=== PATIENT | male | born 1990 | race Caucasian/White ===

== ENCOUNTER 2016-08-01 17:32 | Observation (INO) | payer OTHER ==
[~2016-08-01] VITALS: Ht 188 cm; Wt 91.8 kg
[2016-08-01] MEDS: SODIUM CHLORIDE 0.9% FLUSH 10 ML FLUSH IV FLUSH SCH (01:00)
[2016-08-01 17:40] VITALS: BP 129/77; PULSE 61; RESP 16; TEMP 99; O2SAT 98
[2016-08-01] MEDS ORDERED: DIATRIZOATE MEGLUM/DIATRIZOATE SOD 9 ML CUP ONE (17:58)
[2016-08-01 18:08] LABS: AUTOMATED NEUTROPHIL # 5.9 TH/MM3 (1.8-7.7); BASOPHIL # 0.1 TH/MM3 (0-0.2); BASOPHIL % 1.4 % (0.0-2.0); EOSINOPHIL # 0.1 TH/MM3 (0-0.4); EOSINOPHIL % 0.8 % (0.0-4.0); HEMATOCRIT 44.8 % (39.0-51.0); HEMO FLAGS DIFF FINAL; LYMPH % 25.4 % (9.0-44.0); LYMPHOCYTE # 2.3 TH/MM3 (1.0-4.8); MEAN CELL VOLUME 84.9 FL (80.0-100.0); MEAN CORPUSCULAR HEMOGLOBIN 28.6 PG (27.0-34.0); MEAN CORPUSCULAR HGB CONC 33.7 % (32.0-36.0); MONO % 6.8 % (0.0-8.0); NEUT % 65.6 % (16.0-70.0); PLATELET COUNT 217 TH/MM3 (150-450); RED BLOOD COUNT 5.28 MIL/MM3 (4.50-5.90); RED CELL DISTRIBUTION WIDTH 11.3 % (11.6-17.2)
[2016-08-01 18:09] LABS: BLOOD, URINE NEG (NEG); GLUCOSE,URINE NEG (NEG); KETONE, URINE NEG (NEG); NITRITE,URINE NEG (NEG); PH, URINE 6.5 (5.0-8.5)
[2016-08-01 18:15] LABS: COMMENT (UR) CULT NOT INDICATED; CULTURE IF INDICATED CULT NOT INDICATED; SQUAMOUS EPITHELIAL CELL URINE 0-5 /hpf (0-5); URINE COLOR YELLOW (YELLW/STRAW)
[2016-08-01 18:16] LABS: CHLORIDE 105 MEQ/L (98-107); POTASSIUM 3.8 MEQ/L (3.5-5.1); SODIUM (NA) 142 MEQ/L (136-145)
--- NOTE | 2016-08-01 18:18 | PD ---
HPI Chief Complaint: Abdominal Pain Time Seen by Provider: 17:47 Travel History International Travel<30 days: No Contact w/Intl Traveler<30days: No Traveled to known affect area: No History of Present Illness HPI Patient is a 26-year-old male who presents to emergency room with complaints of abdominal pain. Patient reports that for the past 2 days, he has had intermittent right lower quadrant abdominal pain, reports no fevers or chills, reports that he did have a normal bowel movement today. Patient did go to an urgent care center today, was told to come to emergency room for CT scan of his abdomen and pelvis to rule out appendicitis. Overall, patient reports that he has not loss of appetite, reports no nausea or vomiting or diarrhea. Patient denies any recent travels or trips PFS Past Medical History Medical History: Denies Significant Hx Diminished Hearing: No Tetanus Vaccination: Unknown Past Surgical History Surgical History: No Previous Surgery Family History Family History: Negative Social History Alcohol Use: No Tobacco Use: No Substance Use: No Allergies-Medications (Allergen,Severity, Reaction): Coded Allergies: No Known Allergies (Unverified , 08/01/16) Reported Meds & Prescriptions Reported Meds & Active Scripts Active No Active Prescriptions or Reported Medications Review of Systems General / Constitutional: No: Fever Eyes: No: Visual changes HENT: No: Headaches Cardiovascular: No: Chest Pain or Discomfort Respiratory: No: Shortness of Breath Gastrointestinal: Positive: Abdominal Pain Genitourinary: No: Dysuria Musculoskeletal: No: Pain Skin: No Rash Neurologic: No: Weakness Psychiatric: No: Depression Endocrine: No: Polydipsia Hematologic/Lymphatic: No: Easy Bruising Physical Exam Narrative GENERAL: mild distress SKIN: Warm and dry. HEAD: Atraumatic. Normocephalic. EYES: Pupils equal and round. No scleral icterus. No injection or drainage. ENT: No nasal bleeding or discharge. Mucous membranes pink and moist. NECK: Trachea midline. No JVD. CARDIOVASCULAR: Regular rate and rhythm. No murmur appreciated. RESPIRATORY: No accessory muscle use. Clear to auscultation. Breath sounds equal bilaterally. GASTROINTESTINAL: Abdomen soft, patient with tenderness to RLQ with NO rebound or guarding MUSCULOSKELETAL: No obvious deformities. No clubbing. No cyanosis. No edema. NEUROLOGICAL: Awake and alert. Normal speech. PSYCHIATRIC: Appropriate mood and affect; insight and judgment normal. Data Data Last Documented VS Vital Signs Date Time Temp Pulse Resp B/P Pulse Ox O2 Delivery O2 Flow Rate FiO2 08/01/16 19:18 62 18 119/72 96 Room Air 08/01/16 17:40 99.0 Orders Complete Blood Count With Diff (08/01/16 17:55) Comprehensive Metabolic Panel (08/01/16 17:55) Lipase (08/01/16 17:55) Prothrombin Time / Inr (Pt) (08/01/16 17:55) Act Partial Throm Time (Ptt) (08/01/16 17:55) Urinalysis - C+S If Indicated (08/01/16 17:55) Ct Abd/Pel W Iv Contrast(Rout) (08/01/16 17:55) Iv Access Insert/Monitor (08/01/16 17:55) NPO (08/01/16 17:55) Oral Contrast - Adult (08/01/16 17:58) Diatrizoate Liq ( Gastroview Liq) (08/01/16 17:58) Gc And Chlamydia Pcr (08/01/16 18:10) Ua Includes Microscopic (08/01/16 18:10) Iohexol 350 Inj (Omnipaque 350 Inj) (08/01/16 19:36) Admit Order (Ed Use Only) (08/01/16 20:00) Labs Laboratory Tests Test 08/01/16 18:00 White Blood Count 9.0 TH/MM3 Red Blood Count 5.28 MIL/MM3 Hemoglobin 15.1 GM/DL Hematocrit 44.8 % Mean Corpuscular Volume 84.9 FL Mean Corpuscular Hemoglobin 28.6 PG Mean Corpuscular Hemoglobin 33.7 % Concent Red Cell Distribution Width 11.3 % Platelet Count 217 TH/MM3 Mean Platelet Volume 8.4 FL Neutrophils (%) (Auto) 65.6 % Lymphocytes (%) (Auto) 25.4 % Monocytes (%) (Auto) 6.8 % Eosinophils (%) (Auto) 0.8 % Basophils (%) (Auto) 1.4 % Neutrophils # (Auto) 5.9 TH/MM3 Lymphocytes # (Auto) 2.3 TH/MM3 Monocytes # (Auto) 0.6 TH/MM3 Eosinophils # (Auto) 0.1 TH/MM3 Basophils # (Auto) 0.1 TH/MM3 CBC Comment DIFF FINAL Differential Comment Prothrombin Time 11.0 SEC Prothromb Time International 1.0 RATIO Ratio Activated Partial 27.3 SEC Thromboplast Time Urine Color YELLOW Urine Turbidity CLEAR Urine pH 6.5 Urine Specific Libby 1.015 Urine Protein NEG mg/dL Urine Glucose (UA) NEG mg/dL Urine Ketones NEG mg/dL Urine Occult Blood NEG Urine Nitrite NEG Urine Bilirubin NEG Urine Leukocyte Esterase NEG Urine Squamous Epithelial 0-5 /hpf Cells Microscopic Urinalysis Comment CULT NOT INDICATED Sodium Level 142 MEQ/L Potassium Level 3.8 MEQ/L Chloride Level 105 MEQ/L Carbon Dioxide Level 30.1 MEQ/L Anion Gap 7 MEQ/L Blood Urea Nitrogen 21 MG/DL Creatinine 1.30 MG/DL Estimat Glomerular Filtration 67 ML/MIN Rate Random Glucose 86 MG/DL Calcium Level 8.8 MG/DL Total Bilirubin 0.4 MG/DL Aspartate Amino Transf 16 U/L (AST/SGOT) Alanine Aminotransferase 24 U/L (ALT/SGPT) Alkaline Phosphatase 70 U/L Total Protein 7.6 GM/DL Albumin 4.3 GM/DL Lipase 134 U/L [facility] Medical Decision Making Medical Screen Exam Complete: Yes Emergency Medical Condition: Yes Interpretation(s) Vital Signs Date Time Temp Pulse Resp B/P Pulse Ox O2 Delivery O2 Flow Rate FiO2 08/01/16 17:40 99.0 61 16 129/77 98 Differential Diagnosis appendicitis, constipation, muscle strain, urethritis Narrative Course Patient is a 26-year-old male who presents emergency room with complaints of pain to his right lower quadrant. Patient was sent to the ER from urgent care center for evaluation of possible appendicitis. Patient is comfortable at bedside, patient has not required any pain medications this time. Labs as well as CT the abdomen and pelvis ordered for evaluation of symptoms. Patient does c/o of urinary dysuria - will add UA as well as urine g/c. Vital Signs Date Time Temp Pulse Resp B/P Pulse Ox O2 Delivery O2 Flow Rate FiO2 08/01/16 19:18 62 18 119/72 96 Room Air 08/01/16 19:18 18 08/01/16 17:40 99.0 61 16 129/77 98 Laboratory Tests Test 08/01/16 18:00 White Blood Count 9.0 TH/MM3 (4.0-11.0) Red Blood Count 5.28 MIL/MM3 (4.50-5.90) Hemoglobin 15.1 GM/DL (13.0-17.0) Hematocrit 44.8 % (39.0-51.0) Mean Corpuscular Volume 84.9 FL (80.0-100.0) Mean Corpuscular Hemoglobin 28.6 PG (27.0-34.0) Mean Corpuscular Hemoglobin 33.7 % Concent (32.0-36.0) Red Cell Distribution Width 11.3 % (11.6-17.2) Platelet Count 217 TH/MM3 (150-450) Mean Platelet Volume 8.4 FL (7.0-11.0) Neutrophils (%) (Auto) 65.6 % (16.0-70.0) Lymphocytes (%) (Auto) 25.4 % (9.0-44.0) Monocytes (%) (Auto) 6.8 % (0.0-8.0) Eosinophils (%) (Auto) 0.8 % (0.0-4.0) Basophils (%) (Auto) 1.4 % (0.0-2.0) Neutrophils # (Auto) 5.9 TH/MM3 (1.8-7.7) Lymphocytes # (Auto) 2.3 TH/MM3 (1.0-4.8) Monocytes # (Auto) 0.6 TH/MM3 (0-0.9) Eosinophils # (Auto) 0.1 TH/MM3 (0-0.4) Basophils # (Auto) 0.1 TH/MM3 (0-0.2) CBC Comment DIFF FINAL Differential Comment Prothrombin Time 11.0 SEC (9.8-11.6) Prothromb Time International 1.0 RATIO Ratio Activated Partial 27.3 SEC Thromboplast Time (24.3-30.1) Urine Color YELLOW (YELLW/STRAW) Urine Turbidity CLEAR (CLEAR) Urine pH 6.5 (5.0-8.5) Urine Specific Libby 1.015 (1.002-1.035) Urine Protein NEG mg/dL (NEG-TRACE) Urine Glucose (UA) NEG mg/dL (NEG) Urine Ketones NEG mg/dL (NEG) Urine Occult Blood NEG (NEG) Urine Nitrite NEG (NEG) Urine Bilirubin NEG (NEG) Urine Leukocyte Esterase NEG (NEG) Urine Squamous Epithelial 0-5 /hpf (0-5) Cells Microscopic Urinalysis Comment CULT NOT INDICATED Sodium Level 142 MEQ/L (136-145) Potassium Level 3.8 MEQ/L (3.5-5.1) Chloride Level 105 MEQ/L (98-107) Carbon Dioxide Level 30.1 MEQ/L (21.0-32.0) Anion Gap 7 MEQ/L (5-15) Blood Urea Nitrogen 21 MG/DL (7-18) Creatinine 1.30 MG/DL (0.60-1.30) Estimat Glomerular Filtration 67 ML/MIN (>89) Rate Random Glucose 86 MG/DL (74-106) Calcium Level 8.8 MG/DL (8.5-10.1) Total Bilirubin 0.4 MG/DL (0.2-1.0) Aspartate Amino Transf 16 U/L (15-37) (AST/SGOT) Alanine Aminotransferase 24 U/L (12-78) (ALT/SGPT) Alkaline Phosphatase 70 U/L (45-117) Total Protein 7.6 GM/DL (6.4-8.2) Albumin 4.3 GM/DL (3.4-5.0) Lipase 134 U/L (73-393) Last Impressions Abdomen/Pelvis CT 08/01/16 2934 Signed Impressions: Service Date/Time: July 19:19 - CONCLUSION: 1. Appendix is borderline enlarged at 1 cm and there is very minimal inflammatory changes around the appendix. Findings are most characteristic of either a very early or very mild appendicitis. Gumaro Shannon MD Case reviewed with Dr. White, accepts pt to his service at [facility], patient will most likely go to the operating room tonight. Patient currently nothing by mouth. Plan of care was reviewed with patient and he was agreeable to being transferred to [facility] for surgery Diagnosis Primary Impression: Appendicitis, acute Qualified Code: K35.80 - Acute appendicitis, unspecified acute appendicitis type Admitting Information Admitting Physician Requests: Observation Scripts No Active Prescriptions or Reported Meds Hattie Barlow DO Aug 01, 2016 18:18
[2016-08-01 18:20] LABS: ANION GAP 7 MEQ/L (5-15); BICARBONATE 30.1 MEQ/L (21.0-32.0); BLOOD UREA NITROGEN 21 MG/DL (7-18)
[2016-08-01 18:22] LABS: ALT (GPT) 24 U/L (12-78); AST (GOT) 16 U/L (15-37); GLOMERULAR FILTRATION RATE 67 ML/MIN (>89)
[2016-08-01 18:23] LABS: APTT (PATIENT) 27.3 SEC (24.3-30.1)
[2016-08-01 18:24] LABS: TOTAL BILIRUBIN ADULT 0.4 MG/DL (0.2-1.0)
[2016-08-01 18:25] LABS: ALKALINE PHOSPHATASE 70 U/L (45-117)
[2016-08-01 19:18] VITALS: BP 119/72; PULSE 62; RESP 18; O2SAT 96
[2016-08-01] MEDS ORDERED: IOHEXOL 350 MG/ML 10 ML VIAL (for RAD DIAG) IV ONE (19:36)
--- NOTE | 2016-08-01 19:46 | RADHPO ---
EXAM DATE/TIME: 08/01/2016 19:19 [place] COMPARISON: No previous studies available for comparison. INDICATIONS : Right lower quadrant pain. IV CONTRAST: 100 cc Omnipaque 350 (iohexol) IV ORAL CONTRAST: Prescribed oral contrast ingested. RADIATION DOSE: 15.57 CTDIvol (mGy) MEDICAL HISTORY : None SURGICAL HISTORY : None. ENCOUNTER: Initial ACUITY: 2 days PAIN SCALE: 9/10 LOCATION: Right lower quadrant TECHNIQUE: Volumetric scanning of the abdomen and pelvis was performed. Using automated exposure control and ad justment of the mA and/or kV according to patient size, radiation dose was kept as low as reasonably achievable to obtain optimal diagnostic quality images. FINDINGS: The appendix measures 1 cm in diameter which is borderline enlarged. Is there a minimal inflammatory change around the appendix. Findings are characteristic of a very mild or early appendicitis. No acute findings in the liver, spleen, adrenals, kidneys or pancreas. No calcified gallstones are bl ue ductal dilatation. No free fluid or free air. No acute bony abnormalities. Lung bases are clear. CONCLUSION: 1. Appendix is borderline enlarged at 1 cm and there is very minimal inflammatory changes around the appendix. Findings are most characteristic of either a very early or very mild appendicitis. Gumaro Shannon MD on August 01, 2016 at 19:40 Board Certified Radiologist. This report was verified electronically.
[2016-08-01] MEDS ORDERED: SODIUM CHLOR 0.9% 1000 ML INJ 1,000 ML IV SCH (20:16)
[2016-08-01 21:13] VITALS: BP 114/58; PULSE 59; RESP 18; TEMP 97.8; O2SAT 97
[2016-08-01 22:00] VITALS: PULSE 67
[2016-08-01] MEDS: SODIUM CHLOR 0.9% 1000 ML INJ 1,000 ML IV SCH (22:19)
[2016-08-01] MEDS ORDERED: SODIUM CHLORIDE 0.9% FLUSH 10 ML FLUSH IV FLUSH PRN (22:30)
[2016-08-01] MEDS ORDERED: oxyCODONE/ACETAMINOPHEN 5 MG/325 MG TAB PO PRN (22:30)
[2016-08-01] MEDS ORDERED: MORPHINE SULFATE 4 MG/ML INJ IV PRN (22:30)
[2016-08-01] MEDS ORDERED: LEVOFLOXACIN 500 MG PREMIX INJ 100 ML IV SCH (23:00)
[2016-08-02] VITALS: BP 133/71; PULSE 53; RESP 17; TEMP 96.5; O2SAT 99
[2016-08-02] MEDS: metroNIDAZOLE 500 MG INJ 100 ML IV SCH ×2 (01:19→08:00)
[2016-08-02 04:00] VITALS: BP 105/57; PULSE 55; RESP 17; TEMP 97.9; O2SAT 99
[2016-08-02] MEDS ORDERED: DEXAMETHASONE SOD PHOS 4 MG/ML VIAL ONE (05:45)
[2016-08-02] MEDS ORDERED: MIDAZOLAM HCL 2 MG/2 ML VIAL ONE (05:45)
[2016-08-02] MEDS ORDERED: fentaNYL CITRATE 250 MCG/5 ML AMP ONE (05:45)
[2016-08-02] MEDS ORDERED: ACETAMINOPHEN 1000 MG/100 ML VIAL IV ONE (05:46)
[2016-08-02] MEDS ORDERED: SUGAMMADEX SODIUM 200 MG/2 ML VIAL IV PUSH ONE ×2 (05:49)
[2016-08-02] MEDS ORDERED: FAMOTIDINE 20 MG/2 ML VIAL ONE (05:54)
[2016-08-02] MEDS ORDERED: ceFAZolin INJ 1,000 MG VIAL ONE (06:25)
--- NOTE | 2016-08-02 06:28 | HHI.PR ---
Immediate Post Op Note Procedure Date: Aug 02, 2016 Pre Op Diagnosis: acute appendicitis Post Op Diagnosis: same Surgeon: Frandy White MD [facility] Director(s): see or sheet Procedure: laparoscopic appendectomy Findings: distended appendix, scar tissue right lower quadrant Complications: none Specimen(s) removed: appendix Estimated blood loss: 5cc Anesthesia: General Drains: None Patient to: PACU Patient Condition: Good Frandy White MD Aug 02, 2016 06:28
[2016-08-02] MEDS ORDERED: ceFAZolin INJ 1,000 MG VIAL IV ONE (06:30)
[2016-08-02] MEDS ORDERED: BUPIVACAINE HCL PF 0.5% 30 ML VIAL INFIL ONE (06:35)
[2016-08-02] MEDS ORDERED: *morphine SULFATE 8 MG/ML PERIprocedure ONLY ONE (07:50)
[2016-08-02] MEDS ORDERED: *ONDANSETRON 4 MG VIAL PERIprocedural Use ONLY ONE (08:07)
[2016-08-02] MEDS ORDERED: PANTOPRAZOLE SODIUM 40 MG VIAL IV SCH (09:00)
[2016-08-02] MEDS: SODIUM CHLORIDE 0.9% FLUSH 10 ML FLUSH IV FLUSH SCH (09:00)
[2016-08-02] MEDS: SODIUM CHLOR 0.9% 1000 ML INJ 1,000 ML IV SCH (09:45)
[2016-08-02 10:45] VITALS: BP 113/70; PULSE 60; RESP 16; TEMP 97.9; O2SAT 97
[2016-08-02 11:45] VITALS: O2SAT 96
[2016-08-02] MEDS ORDERED: PROPOFOL 200 MG/20 ML AMP IV ONE (12:00)
[2016-08-02] MEDS ORDERED: ONDANSETRON HCL 4 MG/2 ML VIAL IV PUSH ONE (12:00)
[2016-08-02] MEDS ORDERED: KETOROLAC TROMETHAMINE 60 MG/2 ML (IM) VIAL IM ONE (12:00)
[2016-08-02] MEDS ORDERED: LACTATED RINGER'S 1000 ML INJ 1,000 ML IV ONE (12:00)
[2016-08-02] MEDS ORDERED: NEOSTIGMINE 3 MG/3 ML SYR IV ONE (12:00)
[2016-08-02 12:30] VITALS: BP 112/64; PULSE 64; RESP 16; TEMP 98.1; O2SAT 98
--- NOTE | 2016-08-02 16:44 | MH ---
cc: CHUYITA DOMINGUEZ MD DATE OF ADMISSION: 08/01/2016 CHIEF COMPLAINT Right lower quadrant abdominal pain. HISTORY OF PRESENT ILLNESS The patient is a 26-year-old male who presented to the emergency department with complaints of right lower quadrant abdominal pain. The patient states the pain has been going on for approximately two days. The pain has been intermittent in the right lower quadrant, it is a 7/10 and continued to get worse. He denies any radiation. He states it is better with lying still, worse with movement. He denies any fevers or chills. He has never had this pain before and is having normal bowel movements. The patient was seen at an Urgent Care Center and told to come to the emergency department to obtain a CT scan to rule out appendicitis. The patient had a CT scan showing an enlarged appendix 1 cm, minimal inflammatory changes around the appendix, concern for early appendicitis. Surgery was consulted. On my exam the patient is resting, he states significant right lower quadrant pain and it is not alleviated completely by medications. He has never had pain quite like this before. He denies any nausea or vomiting and has normal bowel movements, denies fevers. PAST MEDICAL HISTORY The patient has no medical history. PAST SURGICAL HISTORY The patient has no surgeries. ALLERGIES THE PATIENT HAS NO KNOWN DRUG ALLERGIES. MEDICATIONS The patient is on no medications. FAMILY HISTORY Denies diabetes or hypertension. SOCIAL HISTORY Denies smoking, ETOH or IVDA. REVIEW OF SYSTEMS GENERAL: Denies fevers or headache. HEENT: Denies eye pain or ear pain. CARDIOVASCULAR: Denies chest pain or palpitations. RESPIRATORY: Denies shortness of breath or wheeze. GASTROINTESTINAL: Complained of abdominal pain. Denies nausea. GENITOURINARY: Denies dysuria or hematuria. MUSCULOSKELETAL: Denies arthralgia or myalgias. SKIN: Denies rash or lesions. NEUROLOGIC: Denies weakness or headache. PSYCHIATRIC: Denies depression or change in mood. ENDOCRINE: Denies polyuria or polydipsia. HEMATOLOGIC: Denies easy bruising or hemarthrosis. PHYSICAL EXAMINATION GENERAL: The patient in no acute distress. VITAL SIGNS: Temperature 99, pulse 62, respirations 18, blood pressure 119/72, pulse ox 96% on room air. HEENT: PERRLA. EOMI. Head atraumatic, normocephalic. NECK: Trachea midline. Supple. CARDIOVASCULAR: Regular rate and rhythm. S1, S2. RESPIRATORY: Bilateral expansion. No wheeze. ABDOMEN: Soft, positive tenderness to palpation in the right lower quadrant, no rebound. MUSCULOSKELETAL: No edema or cyanosis. NEUROLOGIC: Awake, alert and oriented x3. No numbness. PSYCHIATRIC: Appropriate mood and affect. LABORATORY AND DIAGNOSTIC DATA WBC is 9, hemoglobin 15.1, hematocrit 44.8, platelet count 217. Sodium 142, potassium 3.8, chloride 105, CO2 30, creatinine 1.3, BUN 21, glucose 86, AST 24, ALT 16, alkaline phosphatase 70, lipase 134. CT abdomen and pelvis reviewed by myself, shows some dilated appendix approximately 1 cm, minimal inflammatory changes. ASSESSMENT The patient is a 26-year-old male who presents with acute onset right lower quadrant pain, rule out appendicitis. PLAN After a full clinical, radiologic and laboratory workup, the patient with above-named complaints including a concern for acute appendicitis. At this point, suspicion for acute appendicitis as the patient presents with right lower quadrant pain that is not improving. The patient does not have fevers but states the pain is progressive and CT scan findings are concerning for this. At this point, recommend IV antibiotics and p.o. IV fluids. We will take the patient to the OR for a laparoscopic appendectomy, possible open. Discussed with the patient in detail. He stated understanding and agrees and would like to proceed. MD AILEEN Boland/CHEPE /3:22 PM /4:08 PM
--- NOTE | 2016-08-06 13:03 | MP ---
cc: CHUYITA WHITE MD DATE OF SURGERY 08/02/2016 PREOPERATIVE DIAGNOSIS Acute appendicitis POSTOPERATIVE DIAGNOSIS Acute appendicitis, adhesions. SURGERY PERFORMED Laparoscopic appendectomy, lysis of adhesions. SURGEON Dr. Chuyita White [employer] See OR sheet ANESTHESIA GETA IV FLUIDS 100 cc ESTIMATED BLOOD LOSS 5 cc DRAINS None COMPLICATIONS None WOUND CLASSIFICATION Clean contaminated FINDINGS Distended appendix, adhesions right quadrant to peritoneum, small bowel adhesions as well right lower quadrant. SPECIMEN Appendix INDICATION The patient presented with acute onset of right lower quadrant pain x2 days. The patient stated the pain progressively got considerably worse. He had CT findings with a distended appendix with some stranding concerning for acute appendicitis, therefore decision was made for operative intervention including a laparoscopic appendectomy. PROCEDURE OF DETAIL The patient was taken to the operating suite, placed in the supine position, prepped and draped in the usual sterile fashion after induction of general endotracheal anesthesia. A brief time-out done stating correct patient, procedure and surgical site. We were all in agreement with this. Attention first directed to the umbilicus. A stab evelia incision made. The Veress needle placed intra-abdominally. The abdomen insufflated to 50 mm pneumoperitoneum. Veress needle changed for a 5-mm scope. After cursory inspection, no evidence of injury. Two other ports placed, one 12 mm in the left lower quadrant, followed by a 5-mm suprapubic port. The patient was placed in reverse Trendelenburg and airplaned to the left. The patient noted to have a small bowel loop adhesions to the posterior peritoneum. Some of these adhesions were mobilized in order to identify the appendix. The appendix also noted to be significantly scarred in to the peritoneum. Minimal distension and inflammation noted. There was no perforation evident. Appendix was slowly mobilized. The base of the appendix was grasped. A small window was made with a [place] grasper. A 35 TAMMIE stapler was used to transect the base of the appendix. Next, the mesoappendix was also mobilized and dissected. This was transected with two loads of the Endo-TAMMIE 35 stapler. Hemostasis was further pain with electro-Bovie cautery. A minimal bleeding 4x4 Ray-[place] was placed intra-abdominally to assist with hemostasis. Hemostasis obtained and appendix was placed in the EndoCatch bag and removed from the left lower quadrant. On further inspection, no evidence of any other abnormality. Again there was some scarring and adhesions noted in the right lower quadrant as well. The abdomen was then desufflated, ports removed and the left lower quadrant port was closed with a [id number] 0 Vicryl suture followed by all ports closed by 4-0 Monocryl sutures. Local anesthetic injected at all incisions. Sterile dressings were placed. The patient tolerated the procedure well. There was no intraoperative complication. The patient was extubated, taken stable to the PACU. MD AILEEN Boland/YOUSIF /3:28 PM /12:55 PM
== END 2016-08-02 13:46 | disposition home or self-care (01) ==
LOC: PHED 17:32 → PHEDA 20:04 → HPAC 21:50 → N06B 08-02
PROVIDERS: ADMIT Surgery; ATTEND Surgery
DX: K35.80 Unspecified acute appendicitis (principal); K66.0 Peritoneal adhesions (postprocedural) (postinfection)
CPT/HCPCS: 74177; 80053; 81001; 83690; 85025; 85610; 85730; 88304; C9113; G0378; J0131; J0690; J1100; J1885; J1956; J2250; J2270; J2405; J2710; J3010; J7030; J7120; Q9963; Q9967